=== PATIENT | male | born 1990 | race Caucasian/White ===

== ENCOUNTER 2021-07-10 23:13 | Emergency (ER) | payer BC ==
[2021-07-11 00:10] LABS: Appearance,Urine Clear (Clear); Bilirubin,Urine Negative (Negative); Blood,Urine Negative (Negative); Color,Urine Light Yellow; Glucose,Urine (UA) Negative (Negative); Ketones,Urine Negative (Negative); Leukocyte Esterase,Urine Negative (Negative); Nitrite,Urine Negative (Negative); PH, Urine 5.5 (5.0-8.0); Protein,Urine Negative (Negative); Specific Gravity,Urine 1.003 (1.001-1.035); Urobilinogen,Urine <2.0 mg/dL (<2.0)
[2021-07-11] MEDS ORDERED: ACETAMINOPHEN TAB 500 MG TAB PO STA (01:25)
[2021-07-11] MEDS ORDERED: KETOROLAC 15 MG/ML 1 ML VIAL IM STA (01:25)
[2021-07-11 01:47] LABS: African American GFR (CKD) >90 (>60 ml/min/1.73 sqM); Anion Gap 14 mmol/L; Blood Urea Nitrogen 11 mg/dL (9-20); Calcium 9.9 mg/dL (8.4-10.2); Carbon Dioxide 24 mmol/L (22-30); Chloride 99 mmol/L (98-107); Glucose 105 mg/dL (74-99); Non-African American GFR(CKD) >90 (>60 ml/min/1.73 sqM); Potassium 3.8 mmol/L (3.5-5.1); Sodium 137 mmol/L (137-145)
[2021-07-11 01:52] LABS: Basophils % (A) 0 %; Eosinophils % (A) 1 %; HCT 45.1 % (39.0-53.0); HGB 15.6 gm/dL (13.0-17.5); Lymphocytes # (A) 0.6 k/uL (1.0-4.8); Lymphocytes % (A) 10 %; MCHC 34.6 g/dL (31.0-37.0); MCV 89.4 fL (80.0-100.0); Mean Platelet Volume 7.3; Monocytes # (A) 0.5 k/uL (0-1.0); Monocytes % (A) 9 %; Neutrophils # (A) 4.5 k/uL (1.3-7.7); Neutrophils % (A) 78 %; Platelet Count 193 k/uL (150-450); RBC 5.04 m/uL (4.30-5.90); RDW 12.1 % (11.5-15.5); WBC 5.8 k/uL (3.8-10.6)
--- NOTE | 2021-07-11 02:28 | ED ---
General Adult HPI - General Chief complaint: Back Pain/Injury Stated complaint: Lower back pain, sweats Time Seen by Provider: 07/11/21 01:16 Source: patient - History of Present Illness Initial comments: 31-year-old male patient presents to the emergency department today for evaluation of bilateral flank pain. States that symptoms started earlier in the day today. States along with this he has had fever, sweats, lack of appetite. States he did take 2 home Covid tests and both were negative. Patient is concerned he may have kidney infection or bladder infection. He denies any nausea or vomiting. Denies history of kidney or bladder infection. Denies concern for sexually transmitted infections. Denies history of kidney stone. States he is otherwise healthy does not take any medications. - Related Data Previous Rx's Medication Instructions Recorded Ibuprofen [Motrin] 600 mg PO Q8HR PRN #30 tab 07/11/21 Allergies Allergy/AdvReac Type Severity Reaction Status Date / Time No Known Allergies Allergy Verified 07/10/21 23:52 Review of Systems ROS Statement: Those systems with pertinent positive or pertinent negative responses have been documented in the HPI. ROS Other: All systems not noted in ROS Statement are negative. Past Medical History Past Medical History: No Reported History History of Any Multi-Drug Resistant Organisms: None Reported Past Surgical History: No Surgical Hx Reported Past Psychological History: No Psychological Hx Reported Smoking Status: Former smoker Past Alcohol Use History: None Reported Past Drug Use History: Marijuana General Exam General appearance: alert, in no apparent distress, other (This is a well- developed, well-nourished adult male in no acute distress.) ENT exam: Present: normal exam, normal oropharynx, mucous membranes moist Respiratory exam: Present: normal lung sounds bilaterally. Absent: respiratory distress, wheezes, rales, rhonchi, stridor Cardiovascular Exam: Present: normal rhythm, tachycardia, normal heart sounds. Absent: systolic murmur, diastolic murmur, rubs, gallop, clicks GI/Abdominal exam: Present: soft, normal bowel sounds. Absent: distended, tenderness, guarding, rebound, rigid Back exam: Present: normal inspection, CVA tenderness (R), CVA tenderness (L) Neurological exam: Present: alert, oriented X3, CN II-XII intact Psychiatric exam: Present: normal affect, normal mood Skin exam: Present: warm, dry, intact, normal color. Absent: rash Course Vital Signs 07/10/21 07/11/21 23:53 02:35 Temperature 100.3 F H 98.6 F Pulse Rate 132 H 84 Respiratory 22 17 Rate Blood Pressure 110/73 118/76 O2 Sat by Pulse 99 97 Oximetry Medical Decision Making - Medical Decision Making 31-year-old male patient presents to the emergency department today for evaluation of bilateral flank pain, fever, sweats. Reports lack of appetite. States he is also having some bilateral knee pain. Physical examination is unremarkable. Labs reviewed and urinalysis and positive COVID-19 test. I did discuss results with the patient. He is very uncomfortable being discharged without labs to check his kidneys. Did inform him his symptoms when he requested IV blood draw. Did check CBC and comp. Patient's kidney function is normal. Remainder of labs are unremarkable. He will be discharged follow up with his primary care physician for recheck in 1-2 days. Return parameters were discussed in detail. He verbalizes understanding and agrees with this plan. My attending is Dr. Velazquez. - Lab Data Result diagrams: 07/11/21 01:28 07/11/21 01:28 Lab Results 07/11/21 07/11/21 07/11/21 Range/Units 00:00 00:05 00:05 WBC (3.8-10.6) k/uL RBC (4.30-5.90) m/uL Hgb (13.0-17.5) gm/dL Hct (39.0-53.0) % MCV (80.0-100.0) fL MCH (25.0-35.0) pg MCHC (31.0-37.0) g/dL RDW (11.5-15.5) % Plt Count (150-450) k/uL MPV Neutrophils % % Lymphocytes % % Monocytes % % Eosinophils % % Basophils % % Neutrophils # (1.3-7.7) k/uL Lymphocytes # (1.0-4.8) k/uL Monocytes # (0-1.0) k/uL Eosinophils # (0-0.7) k/uL Basophils # (0-0.2) k/uL Sodium (137-145) mmol/L Potassium (3.5-5.1) mmol/L Chloride (98-107) mmol/L Carbon Dioxide (22-30) mmol/L Anion Gap mmol/L BUN (9-20) mg/dL Creatinine (0.66-1.25) mg/dL Est GFR (CKD-EPI)AfAm (>60 ml/min/1.73 sqM) Est GFR (CKD-EPI)NonAf (>60 ml/min/1.73 sqM) Glucose (74-99) mg/dL Calcium (8.4-10.2) mg/dL Urine Color Light Yellow Urine Appearance Clear (Clear) Urine pH 5.5 (5.0-8.0) Ur Specific [place] 1.003 (1.001-1.035) Urine Protein Negative (Negative) Urine Glucose (UA) Negative (Negative) Urine Ketones Negative (Negative) Urine Blood Negative (Negative) Urine Nitrite Negative (Negative) Urine Bilirubin Negative (Negative) Urine Urobilinogen <2.0 (<2.0) mg/dL Ur Leukocyte Esterase Negative (Negative) Coronavirus (PCR) Detected A (Not Detectd) Influenza Type A RNA Not Detected (Not Detectd) Influenza Type B (PCR) Not Detected (Not Detectd) 07/11/21 07/11/21 Range/Units 01:28 01:28 WBC 5.8 (3.8-10.6) k/uL RBC 5.04 (4.30-5.90) m/uL Hgb 15.6 (13.0-17.5) gm/dL Hct 45.1 (39.0-53.0) % MCV 89.4 (80.0-100.0) fL MCH 31.0 (25.0-35.0) pg MCHC 34.6 (31.0-37.0) g/dL RDW 12.1 (11.5-15.5) % Plt Count 193 (150-450) k/uL MPV 7.3 Neutrophils % 78 % Lymphocytes % 10 % Monocytes % 9 % Eosinophils % 1 % Basophils % 0 % Neutrophils # 4.5 (1.3-7.7) k/uL Lymphocytes # 0.6 L (1.0-4.8) k/uL Monocytes # 0.5 (0-1.0) k/uL Eosinophils # 0.0 (0-0.7) k/uL Basophils # 0.0 (0-0.2) k/uL Sodium 137 (137-145) mmol/L Potassium 3.8 (3.5-5.1) mmol/L Chloride 99 (98-107) mmol/L Carbon Dioxide 24 (22-30) mmol/L Anion Gap 14 mmol/L BUN 11 (9-20) mg/dL Creatinine 0.99 (0.66-1.25) mg/dL Est GFR (CKD-EPI)AfAm >90 (>60 ml/min/1.73 sqM) Est GFR (CKD-EPI)NonAf >90 (>60 ml/min/1.73 sqM) Glucose 105 H (74-99) mg/dL Calcium 9.9 (8.4-10.2) mg/dL Urine Color Urine Appearance (Clear) Urine pH (5.0-8.0) Ur Specific [place] (1.001-1.035) Urine Protein (Negative) Urine Glucose (UA) (Negative) Urine Ketones (Negative) Urine Blood (Negative) Urine Nitrite (Negative) Urine Bilirubin (Negative) Urine Urobilinogen (<2.0) mg/dL Ur Leukocyte Esterase (Negative) Coronavirus (PCR) (Not Detectd) Influenza Type A RNA (Not Detectd) Influenza Type B (PCR) (Not Detectd) Disposition Clinical Impression: COVID-19, Back pain Disposition: HOME SELF-CARE Condition: Good Instructions (If sedation given, give patient instructions): Coronavirus Disease 2019 (COVID-19), Acute Low Back Pain (ED) Additional Instructions: Tips to help you feel better: -Maintain adequate fluid intake - especially water. -Rest, you are healing your body will require extra sleep. -Eat even if you do not feel like it - broth, jello, toast are fine if you cannot eat full meals. -Take tylenol and motrin alternating (if you have no allergies or have not been instructed to avoid these medications) to help with body aches and fevers. -Obtain over the counter vitamin C, zinc, and vitamin D3. -Take medications as prescribed. Follow-up with your primary care physician for recheck in 1-2 days. Return for any new, worsening, or concerning symptoms. Prescriptions: Ibuprofen [Motrin] 600 mg PO Q8HR PRN #30 tab PRN Reason: Pain Is patient prescribed a controlled substance at d/c from ED?: No Referrals: Huy Seth MD [Primary Care Provider] - 1-2 days Time of Disposition: 02:28
[2021-07-11 02:36] VITALS: BP 118/76; PULSE 84; RESP 17; TEMP 98.6
== END 2021-07-11 02:34 | disposition home or self-care (01) ==
LOC: EC 23:13
DX: U07.1 COVID-19 (principal); M54.9 Dorsalgia, unspecified; Z87.891 Personal history of nicotine dependence; F12.90 Cannabis use, unspecified, uncomplicated
CPT/HCPCS: 36415; 80048; 85025; 81003; 87502; 87635; 99284; 96372; J1885